=== PATIENT | female | born 1965 | race Caucasian/White ===

== ENCOUNTER → 2016-06-17 | Outpatient (CLI) | payer OTHER ==
[~2016-06-17] MED LIST: ALPR-411 PO; CYAN3INJ
--- NOTE | 2016-06-17 15:43 | DIAGNOSTIC IMAGING REPORT ---
MRI OF THE LUMBAR SPINE WITHOUT CONTRAST CLINICAL HISTORY: Recent fall. Persistent lumbar pain. COMPARISON STUDY: No previous studies for comparison. TECHNIQUE: Utilizing a 1.5 Sandy magnet and dedicated coil, multiplanar, multiecho imaging of the lumbar spine was performed without IV contrast. FINDINGS: For purposes of numbering on this exam, the L5-S1 disc space is assigned to axial image 27 of 30. Alignment of the lumbar spine is anatomic. Vertebral body heights are maintained. There is no marrow replacement. The conus terminates at the T12-L1 level. No intracanalicular mass or fluid collection is present. Paravertebral soft tissues are unremarkable. There is trace tiny central disc protrusion with minimal inferior subligamentous migration at T12-L1. There is no significant central canal stenosis. L1-2: The central canal and neural foramen are patent. L2-3: The central canal and neural foramen are patent. L3-4: The central canal and neural foramen are patent. L4-5: The central canal and neural foramen are patent. L5-S1: There is mild facet arthrosis. There is minimal disc bulge. The central canal and neural foramen are patent. IMPRESSION: 1. Minimal multilevel degenerative disc disease and facet arthrosis of the lumbar spine. Patent central canal and neural foramen. Tiny central disc protrusion at T12-L1 and minimal disc bulge at L5-S1. 2. No evidence of traumatic injury to the lumbar spine. Electronically signed by: Param Antonio M.D. 06/17/2016 3:41 PM Dictated Date/Time: 06/17/2016 3:34 PM
== END | disposition home or self-care (01) ==
LOC: EDSTATUS 14:30 → C.MRI 14:48
PROVIDERS: ATTEND Nurse Practitioner Family
DX: S39.012A Strain of muscle, fascia and tendon of lower back, initial encounter (principal); W19.XXXA Unspecified fall, initial encounter; M51.36 Other intervertebral disc degeneration, lumbar region

== ENCOUNTER → 2016-12-02 | Outpatient (CLI) | payer OTHER ==
[2016-12-02 13:22] LABS: BASO % 0.4 %; BASO ABS # 0.02 K/uL (0-0.2); COMPLETE YES; HEMATOCRIT 38.3 % (37-47); IG% 0.2 %; LYMPH % 33.2 %; LYMPH ABS # 1.54 K/uL (1.2-3.4); MEAN CELL VOLUME 93.9 fL (80-100); MEAN CORPUSCULAR HEMOGLOBIN 31.9 pg (25-34); MEAN CORPUSCULAR HGB CONC 33.9 g/dl (32-36); MEAN PLATELET VOLUME 9.7 fL (7.4-10.4); MONO % 3.7 %; NEUT % 62.5 %; PLATELET COUNT 200 K/uL (130-400); RED BLOOD COUNT 4.08 M/uL (4.2-5.4); WHITE BLOOD COUNT 4.64 K/uL (4.8-10.8)
[2016-12-02 14:38] LABS: CHOLESTEROL/HDL RATIO 3.6; THYROID STIMULATING HORMONE 1.23 uIu/ml (0.300-4.500)
== END | disposition home or self-care (01) ==
LOC: C.LABMFLN 09:11
PROVIDERS: ATTEND Family Medicine
DX: E78.5 Hyperlipidemia, unspecified (principal); R53.83 Other fatigue; Z12.31 Encounter for screening mammogram for malignant neoplasm of breast

== ENCOUNTER → 2017-08-09 | Day surgery (SDC) | payer OTHER ==
[2017-07-29 09:26] VITALS: Ht 160 cm; Wt 85.0 kg
[~2017-08-09] VITALS: Ht 160 cm; Wt 85.0 kg
[~2017-08-09] MED LIST changes: -ALPR-411 PO; +ALPR0.25 PO; +BUPR200T2 PO; -CYAN3INJ; +LIDOCAINE HCL 2% 2 ML VIAL (20MG/ML) ONE; +PANT40TA PO; +PROPOFOL IV EMULSION 10 MG/ML 20 ML VIAL IV ONE; +RIZA10TA18 PO; +SODIUM CHLORIDE 0.9% 500ML 500 ML IV ONE; +TOPI25TA55 PO; +TRAZ100T29 PO; +VILA1TAB2 PO; +VITAMIN B12 IM
--- NOTE | 2017-08-09 11:13 | Endo History and Physical ---
History & Physical Date of Service: Aug 09, 2017. Chief Complaint: Screening Referring Physician: Dr. Ulises Mcgee History of Present Illness 52 yo CF who presents for screening colonoscopy. Past Surgical History Hx Cardiac Surgery: No Hx Internal Defibrillator: No Hx Pacemaker: No Hx Abdominal Surgery: Yes (HYSTER, , JULIA) Hx of Implantable Prosthesis: No Hx Post-Op Nausea and Vomiting: Yes Hx Cancer Surgery: No Hx Thoracic Surgery: No Hx Orthopedic: No Hx Urinary Tract Surgery: No Family History None Social History Smoking Status: Former Smoker Hx Substance Use: No Hx Alcohol Use: No Allergies Coded Allergies: NO KNOWN DRUG ALLERGIES (Verified Allergy, Unknown, ., 07/29/17) Adhesives (Verified Adverse Reaction, Unknown, REDNESS/RASH, 07/29/17) Current Medications Reported Home Medications Medications Dose Route/Sig Max Daily Dose Days Date Category Topamax (Topiramate) 25 Mg Tab 1 Tab PO QAM 07/29/17 Reported Topamax (Topiramate) 25 Mg Tab 2 Tabs PO QPM 07/29/17 Reported Wellbutrin Sr (Bupropion HCl) 200 Mg Ertab 200 Mg PO BID 07/29/17 Reported [Vitamin B12] 1 Dose IM MONTHLY 07/29/17 Reported Protonix (Pantoprazole Sodium) 40 Mg Tab 40 Mg PO BID 07/29/17 Reported Maxalt (Rizatriptan Benzoate) 10 Mg Tab 10 Mg PO UD PRN 07/29/17 Reported Trazodone (Trazodone HCl) 100 Mg Tab 300 Mg PO HS 07/29/17 Reported Xanax (Alprazolam) 0.25 Mg Tab 0.25 Mg PO TID PRN 07/29/17 Reported Vital Signs Weight (Kilograms): 85 Height (Feet): 5 Height (Inches): 3 Date Time Temp Pulse Resp B/P (MAP) Pulse Ox O2 Delivery O2 Flow Rate FiO2 08/09/17 10:19 36.5 65 16 110/58 (75) 95 Room Air Physical Exam General Appearance: WD/WN, no apparent distress Respiratory/Chest: Auscultation: breath sounds normal Cardiovascular: Heart Auscultation: RRR Abdomen: Bowel Sounds: normal Inspection & Palpation: soft, non-distended, no tenderness, guarding & rebound Assessment and Plan Assessment: 52 yo CF who presents for screening colonoscopy. Plan: Proceed with colonoscopy.
--- NOTE | 2017-08-09 11:39 | GI REPORT ---
Procedure Date: 08/09/2017 11:16 AM Procedure: Colonoscopy Indications: Screening for colorectal malignant neoplasm Medicines: Monitored Anesthesia Care Complications: No immediate complications. Estimated Blood Loss: Estimated blood loss: none. Procedure: Pre-Anesthesia Assessment: - Prior to the procedure, a History and Physical was performed, and patient medications and allergies were reviewed. The patient's tolerance of previous anesthesia was also reviewed. The risks and benefits of the procedure and the sedation options and risks were discussed with the patient. All questions were answered, and informed consent was obtained. Prior Anticoagulants: The patient has taken no previous anticoagulant or antiplatelet agents. ASA Grade Assessment: II - A patient with mild systemic disease. After reviewing the risks and benefits, the patient was deemed in satisfactory condition to undergo the procedure. After I obtained informed consent, the scope was passed under direct vision. Throughout the procedure, the patient's blood pressure, pulse, and oxygen saturations were monitored continuously. The scope was introduced through the anus and advanced to the terminal ileum. The colonoscopy was performed without difficulty. The patient tolerated the procedure well. The quality of the bowel preparation was good. The terminal ileum, ileocecal valve, appendiceal orifice, and rectum were photographed. Findings: The perianal and digital rectal examinations were normal. A 6 mm polyp was found in the ascending colon. The polyp was sessile. The polyp was removed with a hot snare. Resection and retrieval were complete. Multiple small-mouthed diverticula were found in the sigmoid colon. Non-bleeding internal hemorrhoids were found during retroflexion. The hemorrhoids were small. Impression: - One 6 mm polyp in the ascending colon, removed with a hot snare. Resected and retrieved. - Diverticulosis in the sigmoid colon. - Non-bleeding internal hemorrhoids. Recommendation: - Resume previous diet. - Continue present medications. - Repeat colonoscopy for surveillance based on pathology results. - Return to primary care physician as previously scheduled. Josiah Scanlon, DO 08/09/2017 11:38:55 AM This report has been signed electronically. Note Initiated On: 08/09/2017 11:16 AM I attest to the content of the Intraoperative Record and orders documented therein, exceptions below
--- NOTE | 2017-08-09 11:40 | Discharge Instructions ---
Endoscopy Patient Instructions Date / Procedure(s) Performed Aug 09, 2017. Colonoscopy Allergy Information Coded Allergies: NO KNOWN DRUG ALLERGIES (Verified Allergy, Unknown, ., 07/29/17) Adhesives (Verified Adverse Reaction, Unknown, REDNESS/RASH, 07/29/17) Discharge Date / Findings Aug 09, 2017. Colon polyp Diverticulosis Internal hemorrhoids Medication Instructions OK to resume all medications today as prescribed Reported Home Medications Medications Dose Route/Sig Max Daily Dose Days Date Category Topamax (Topiramate) 25 Mg Tab 1 Tab PO QAM 07/29/17 Reported Topamax (Topiramate) 25 Mg Tab 2 Tabs PO QPM 07/29/17 Reported Wellbutrin Sr (Bupropion HCl) 200 Mg Ertab 200 Mg PO BID 07/29/17 Reported [Vitamin B12] 1 Dose IM MONTHLY 07/29/17 Reported Protonix (Pantoprazole Sodium) 40 Mg Tab 40 Mg PO BID 07/29/17 Reported Maxalt (Rizatriptan Benzoate) 10 Mg Tab 10 Mg PO UD PRN 07/29/17 Reported Trazodone (Trazodone HCl) 100 Mg Tab 300 Mg PO HS 07/29/17 Reported Xanax (Alprazolam) 0.25 Mg Tab 0.25 Mg PO TID PRN 07/29/17 Reported Provider Instructions Activity Restrictions - No exercising or heavy lifting for 24 hours. - Do not drink alcohol the day of the procedure. - Do not drive a car or operate machinery until the day after the procedure. - Do not make any important decisions or sign important papers in 24 hours after the procedure. Following Day: - Return to full activity which may include returning to work/school. Diet Start your diet with liquids and light foods (jello, soup, juice, toast). Then eat your usual diet if not nauseated. Treatment For Common After Affects For mild abdominal pain, bloating, or excessive gas: - Rest - Eat lightly - Lie on right side Follow-Up Information Follow-up with Dr. Ulises Mcgee as scheduled Anesthesia Information What You Should Know You have had a procedure that required some medicine to reduce anxiety and discomfort. This treatment is called moderate sedation. After receiving the treatment, you may be sleepy, but you will be able to breathe on your own. The effects of the treatment may last for several hours. Follow these instructions along with Activity/Diet recommendations noted above: * Do NOT do anything where dizziness or clumsiness would be dangerous. * Rest quietly at home today, then you can be up and about tomorrow. * Have a responsible person stay with you the rest of today. * You may have had an I.V. today. If so, you may take the dressing off later today. Recommendations Call your doctor if: * Trouble breathing * Continuous vomiting for more than 24 hours * Temperature above 101 degrees * Severe abdominal pain or bloating * Pain not relieved by pain medicine ordered * There is increased drainage or redness from any incision * A large amount of rectal bleeding greater than 2-3 tablespoons. (If you had a polyp/s removed or have hemorrhoids, a small amount of blood - from the rectum is to be expected.) * You have any unanswered questions or concerns. IN THE EVENT OF A SERIOUS EMERGENCY, GO TO THE NEAREST EMERGENCY ROOM Your discharge instructions were prepared by provider Josiah Scanlon. Patient Instructions Signature Page Vicki Núñez Patient (or Guardian) Signature/Date: I have read and understand the instructions given to me by my caregivers. Caregiver/RN/Doctor Signature/Date: The above-named patient and/or guardian has received patient instructions on this date. + Original Patient Signature Page (only) stays with chart. Please make copy for patient.
--- NOTE | 2017-08-09 12:09 | Anesthesiology Progress Note ---
Anesthesia Post Op Note Date & Time Aug 09, 2017 at 12:09 Vital Signs Pain Intensity: 0 Vital Signs Past 12 Hours Date Time Temp Pulse Resp B/P (MAP) Pulse Ox O2 Delivery O2 Flow Rate FiO2 08/09/17 11:56 67 20 123/84 (97) 99 Room Air 08/09/17 11:41 66 16 109/61 (77) 99 Room Air 08/09/17 10:19 36.5 65 16 110/58 (75) 95 Room Air Notes Mental Status: alert / awake / arousable, participated in evaluation Pt Amnestic to Procedure: Yes Nausea / Vomiting: adequately controlled Pain: adequately controlled Airway Patency, RR, SpO2: stable & adequate BP & HR: stable & adequate Hydration State: stable & adequate Anesthetic Complications: no major complications apparent
[2017-08-09 12:11] VITALS: BP 135/87; PULSE 66; O2SAT 100
== END | disposition home or self-care (01) ==
LOC: C.GI 09:26
PROVIDERS: ATTEND Internal Medicine
DX: Z12.11 Encounter for screening for malignant neoplasm of colon (principal); D12.2 Benign neoplasm of ascending colon; K64.8 Other hemorrhoids; K57.30 Diverticulosis of large intestine without perforation or abscess without bleeding; Z87.891 Personal history of nicotine dependence; Z90.710 Acquired absence of both cervix and uterus; Z90.49 Acquired absence of other specified parts of digestive tract